=== PATIENT | male | born 1990 | race African-American/Black ===

== ENCOUNTER 2019-03-05 08:11 | Emergency (ER) | payer SELFPAY ==
--- NOTE | 2019-03-05 10:39 | RAD ---
AP PELVIS: Date: 03/05/19 INDICATION: Fall with injury. FINDINGS: Pelvis appears intact. SI joints are symmetric. Hips appear intact. IMPRESSION: No acute findings. POS: [facility]
== END 2019-03-05 09:25 | disposition home or self-care (01) ==
LOC: SCSER 08:11
DX: S30.0XXA Contusion of lower back and pelvis, initial encounter (principal); F17.210 Nicotine dependence, cigarettes, uncomplicated; V80.010A Animal-rider injured by fall from or being thrown from horse in noncollision accident, initial encounter
CPT/HCPCS: 72170